=== PATIENT | male | born 1960 | race Caucasian/White ===

== ENCOUNTER 2018-11-11 11:39 | Day surgery (SDC) | payer BC ==
[2018-10-30 14:47] VITALS: BP 146/89
[~2018-11-11] VITALS: Ht 190.5 cm; Wt 94.9 kg
[~2018-11-11 11:39] MED LIST: CHOL200024 PO; LORA1TAB46 PO; PITA4TAB2 PO; TAMS-11 PO
[2018-11-11] MEDS ORDERED: LACTATED RINGERS 1,000 ML IV SCH (12:13)
[2018-11-11] MEDS ORDERED: EPINEPHRINE 1 MG/ML, 1ML ONE (13:06)
[2018-11-11] MEDS ORDERED: BUPIVACAINE/PF 0.25% ONE (13:06)
[2018-11-11] MEDS ORDERED: FENTANYL PF 250 MCG/5ML ONE (14:03)
[2018-11-11] MEDS ORDERED: ONDANSETRON 2MG/ML, 2ML ONE (15:15)
[2018-11-11] MEDS ORDERED: CEFAZOLIN 1,000 MG ONE (15:15)
[2018-11-11] MEDS ORDERED: GLYCOPYRROLATE 0.2MG/1ML, 5ML ONE (15:15)
[2018-11-11] MEDS ORDERED: PROPOFOL 10 MG/ML, 20ML ONE (15:15)
[2018-11-11] MEDS ORDERED: SUCCINYLCHOLINE 20 MG/ML, 10ML ONE (15:15)
[2018-11-11] MEDS ORDERED: ROCURONIUM 10MG/ML,5ML ONE (15:15)
[2018-11-11] MEDS ORDERED: DEXAMETHASONE 4 MG/ML, 1ML ONE (15:15)
[2018-11-11] MEDS ORDERED: NEOSTIGMINE 1 MG/ML, 10ML ONE (15:15)
[2018-11-11] MEDS: FENTANYL PF 100 MCG/2ML IV PRN ×2 (15:45→15:55)
[2018-11-11] MEDS ORDERED: FENTANYL PF 100 MCG/2ML ONE (15:48)
[2018-11-11] MEDS ORDERED: OXYcodone 5 MG/5 ML ORAL.SOL UDC ONE (15:48)
[2018-11-11] MEDS ORDERED: KETOROLAC 30 MG/1 ML ONE (15:54)
[2018-11-11] MEDS ORDERED: KETOROLAC 30 MG/1 ML IV PRN (16:00)
[2018-11-11] MEDS ORDERED: OXYcodone 5 MG/5 ML ORAL.SOL UDC PO PRN (16:00)
[2018-11-11] MEDS ORDERED: PROMETHAZINE 25 MG/ML, 1ML IV PRN (16:00)
[2018-11-11] MEDS ORDERED: LABETALOL 5MG/ML, 20ML IV PRN (16:00)
[2018-11-11] MEDS ORDERED: HYDROmorphone 2 MG/ML, 1ML IVPush PRN (16:00)
[2018-11-11] MEDS ORDERED: MEPERIDINE/PF 25MG/0.5ML IVPush PRN (16:00)
[2018-11-11] MEDS ORDERED: hydrALAzine 20 MG/ML, 1ML IV PRN (16:00)
[2018-11-11] MEDS ORDERED: DIPHENHYDRAMINE 50 MG/ML, 1ML IVPush PRN (16:00)
[2018-11-11] MEDS ORDERED: HALOPERIDOL 5 MG/ML IV PRN (16:00)
== END 2018-11-11 18:18 | disposition home or self-care (01) ==
LOC: OUT 11:39
PROVIDERS: ATTEND Surgery
DX: K40.90 Unilateral inguinal hernia, without obstruction or gangrene, not specified as recurrent (principal); K21.9 Gastro-esophageal reflux disease without esophagitis; E78.00 Pure hypercholesterolemia, unspecified; N40.0 Benign prostatic hyperplasia without lower urinary tract symptoms; Z98.890 Other specified postprocedural states; Z91.012 Allergy to eggs; Z88.0 Allergy status to penicillin; Z88.8 Allergy status to other drugs, medicaments and biological substances; Z91.018 Allergy to other foods; Z72.89 Other problems related to lifestyle
CPT/HCPCS: 49650; C1727; C1781; J0171; J0330; J0690; J1100; J1885; J2405; J2704; J2710; J3010; J3490; J7120

== ENCOUNTER → 2021-02-16 | Outpatient (CLI) | payer BC, OTHER | END | disposition home or self-care (01) | LOC: CFH 07:37 | PROVIDERS: ATTEND Internal Medicine Cardiovascular Disease | DX: R07.89 Other chest pain (principal) | CPT/HCPCS: 93306; 93356 ==